=== PATIENT | female | born 2000 | race Caucasian/White ===

== ENCOUNTER 2019-04-14 21:44 | Emergency (ER) | payer OTHER ==
[2019-04-14 22:03] VITALS: BP 112/69
--- NOTE | 2019-04-14 22:10 | UC ---
Eye Complaint HPI - HPI Summary HPI Summary: 18 yo female with irritated eyes x 1 day r>l matter on lashes friends with pink eye no photophobia wears contacts but has not done so for 1 week - History of Current Complaint Chief Complaint: UCEye Stated Complaint: POSS PINK EYE Time Seen by Provider: 04/14/19 22:03 Hx Obtained From: Patient Hx Last Menstrual Period: 03/1819 Onset/Duration: Gradual Onset, Lasting Hours Severity Currently: None Pain Intensity: 0 Pain Scale Used: 0-10 Numeric Location of Injury: Conjunctiva Aggravating Factor(s): Nothing Alleviating Factor(s): Nothing Associated Signs And Symptoms: Positive: Drainage (Purulent) - Allergies/Home Medications Allergies/Adverse Reactions: Allergies Allergy/AdvReac Type Severity Reaction Status Date / Time Penicillins Allergy Hives Verified 04/14/19 22:04 Home Medications: Home Medications Ibuprofen TAB* [Advil TAB*] 200 mg PO Q8H PRN 04/14/19 [History Confirmed ] PMH/Surg Hx/FS Hx/Imm Hx Previously Healthy: Yes - Surgical History Surgical History: None - Family History Known Family History: Positive: Non-Contributory - Social History Alcohol Use: Weekly Substance Use Type: None Smoking Status (MU): Never Smoked Tobacco Review of Systems All Other Systems Reviewed And Are Negative: Yes Constitutional: Positive: Negative Skin: Positive: Negative Eyes: Positive: Drainage, Eye Redness. Negative: Photophobia ENT: Positive: Negative Respiratory: Positive: Negative Cardiovascular: Positive: Negative Gastrointestinal: Positive: Negative Genitourinary: Positive: Negative Motor: Positive: Negative Neurovascular: Positive: Negative Musculoskeletal: Positive: Negative Neurological: Positive: Negative Psychological: Positive: Negative Physical Exam Triage Information Reviewed: Yes Appearance: Well-Appearing, No Pain Distress, Well-Nourished Vital Signs: Initial Vital Signs Temp 99.4 F 04/14/19 21:59 Pulse 85 04/14/19 21:59 Resp 16 04/14/19 21:59 BP 112/69 04/14/19 21:59 Pulse Ox 97 04/14/19 21:59 Eyes: Positive: Conjunctiva Inflamed, Discharge - R ENT: Positive: Hearing grossly normal, Pharynx normal. Negative: Nasal congestion, Nasal drainage, Trismus, Muffled voice, Hoarse voice Neck: Positive: Supple Respiratory: Positive: Lungs clear, Normal breath sounds, No respiratory distress, No accessory muscle use Cardiovascular: Positive: RRR Neurological: Positive: Alert Psychological Exam: Normal Skin Exam: Normal Eye Complaint Course/Dx - Differential Dx/Diagnosis Provider Diagnosis: Bilateral conjunctivitis Discharge ED - Sign-Out/Discharge Documenting (check all that apply): Patient Departure All imaging exams completed and their final reports reviewed: No Studies - Discharge Plan Condition: Stable Disposition: HOME Patient Education Materials: Conjunctivitis (ED) Referrals: No Primary Care Phys,NOPCP [Primary Care Provider] - Jesus Fischer MD [Medical Doctor] - 4 Days (if not better) Additional Instructions: I suggest you also use ZADITOR eye drops (OTC) I you develop eye pain/severe light sensitivity you need to get rechecked - Billing Disposition and Condition Condition: STABLE Disposition: Home
[2019-04-14] MEDS ORDERED: Polymyx/Trimethoprim OPTH* 10 ML BTL BOTH EYES ONE (22:18)
== END 2019-04-14 22:37 | disposition home or self-care (01) ==
LOC: UCEAST 21:44
DX: H10.9 Unspecified conjunctivitis (principal); Z88.0 Allergy status to penicillin
CPT/HCPCS: 99202; G0463